=== PATIENT | male | born 2000 | race American Indian/Alaskan Native ===

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

== ENCOUNTER 2022-06-18 07:03 | Emergency (ER) | payer OTHER ==
[~2022-06-18] VITALS: Ht 162.6 cm; Wt 63.5 kg
[~2022-06-18 07:03] MED LIST changes: +CRUTCH1 EACH; +NORCO 5-325 TA1 EACH PO
== END 2022-06-18 07:38 | disposition home or self-care (01) ==
LOC: ED 07:03
DX: M25.561 Pain in right knee (principal); F90.9 Attention-deficit hyperactivity disorder, unspecified type; S80.01XA Contusion of right knee, initial encounter; S20.219A Contusion of unspecified front wall of thorax, initial encounter; V89.2XXA Person injured in unspecified motor-vehicle accident, traffic, initial encounter
CPT/HCPCS: 99283

== ENCOUNTER 2022-08-10 03:43 | Emergency (ER) | payer OTHER ==
[~2022-08-10] VITALS: Ht 185.4 cm; Wt 63.5 kg
[2022-08-10] MEDS ORDERED: PROTONIX40 MG PO (05:37)
== END 2022-08-10 05:49 | disposition home or self-care (01) ==
LOC: ED 03:43
DX: R10.12 Left upper quadrant pain (principal); R10.13 Epigastric pain
CPT/HCPCS: 36415; 80053; 81003; 83690; 85025; 99284

== ENCOUNTER 2024-06-30 03:29 | Observation (INO) | payer OTHER ==
[~2024-06-30] VITALS: Ht 185.4 cm; Wt 87.6 kg
[~2024-06-30 03:29] MED LIST changes: +PROTONIX40 MG PO
[2024-06-30] MEDS ORDERED: LACTATED RINGER'S 1,000 ML IV ONE (03:45)
[2024-06-30] MEDS ORDERED: HYDROmorphone HCL 1 MG/ML SYR IV PRN ×4 (03:45→10:45)
[2024-06-30] MEDS ORDERED: DIPHTH,PERTUSS(ACELL),TET VAC 0.5 ML SYRINGE IM ONE (03:45)
[2024-06-30] MEDS ORDERED: ondansetron HCL 4 MG/2 ML VIAL IV ONE (03:45)
[2024-06-30 04:26] LABS: BASOPHILS 0.2 % (0-2); HEMOGLOBIN 14.8 g/dL (12.0-18.0); LYMPHOCYTES 4.3 % (24-44); MCH 30.9 (27-36); MCHC 33.7 g/dl (30-36); MCV 91.8 fl (81-99); MONOCYTES 6.2 % (0-12); NEUTROPHILS 89.3 % (39-80); PLATELET COUNT 326 K/uL (140-440); RBC 4.79 M/ul (4.3-5.7); RDW 13.7 (10.5-15.0)
[2024-06-30 04:42] LABS: ALBUMIN/GLOBULIN RATIO 1.38 (1.1-2.4); ANION GAP 15.4 (7-21); BILIRUBIN, TOTAL 0.6 ng/dL (0.2-1.0); BUN/CREATININE RATIO 9.72 (6.0-28.6); CALCIUM 8.7 mg/dL (8.5-10.1); CREATININE, SERUM 0.72 mg/dL (0.70-1.30); POTASSIUM 3.4 mmol/L (3.5-5.1); PROTEIN, TOTAL 6.9 g/dL (6.4-8.2)
[2024-06-30 05:02] LABS: ABO A
[2024-06-30 05:03] LABS: ANTIBODY SCREEN NEGATIVE; RH POSITIVE
[2024-06-30] MEDS ORDERED: HYDROmorphone HCL 1 MG/ML SYR IV ONE (06:30)
[2024-06-30 06:34] LABS: BILIRUBIN, URINE NEGATIVE (negative); BLOOD/HGB, URINE LARGE (Negative); KETONE, URINE TRACE (Negative); LEUK ESTERASE, URINE NEGATIVE (negative); NITRITE, URINE NEGATIVE (negative)
[2024-06-30 06:43] LABS: CRYSTALS, URINE NONE SEEN (0-1+); RED BLOOD CELLS, URINE >50 /hpf (0-5)
[2024-06-30 06:44] LABS: BACTERIA, URINE RARE /hpf (negative); CASTS, URINE NONE SEEN \\lpf; COLLECTION TYPE, URINE CLEAN CATCH; REFLEX CULTURE, URINE No (No)
[2024-06-30] MEDS ORDERED: KETOROLAC TROMETHAMINE 30 MG/ML VIAL IV PRN (06:45)
[2024-06-30] MEDS ORDERED: ACETAMINOPHEN 325 MG TAB PO PRN ×2 (06:45→11:00)
[2024-06-30] MEDS ORDERED: ondansetron HCL 4 MG/2 ML VIAL IV PRN ×2 (06:45→10:45)
[2024-06-30 06:48] LABS: AMPHETAMINES, URINE NEGATIVE (NEGATIVE); BENZODIAZEPINE, URINE NEGATIVE (NEGATIVE); BUPRENORPHINE, URINE NEGATIVE (NEGATIVE); CANNABINOID, URINE POSITIVE (NEGATIVE); COCAINE, URINE NEGATIVE (NEGATIVE); ECSTASY, URINE NEGATIVE (NEGATIVE); FENTANYL, URINE POSITIVE (NEGATIVE); METHADONE, URINE NEGATIVE (NEGATIVE); OPIATES, URINE POSITIVE (NEGATIVE); OXYCODONE, URINE NEGATIVE (NEGATIVE); PHENCYCLIDINE, URINE NEGATIVE (NEGATIVE)
[2024-06-30 06:59] LABS: BARBITURATES, URINE NEGATIVE (NEGATIVE)
[2024-06-30 07:00] VITALS: BP 155/79
--- NOTE | 2024-06-30 07:35 | NUR ---
REPORT RECEIVED FROM NIGHT ED RN - PT RESTING IN BED AWAKE LOOKING AT PHONE. STATES HE IS NOT IN PAIN IF HE DOESNT MOVE. EDUCATION ON MOVEMENT AND PAIN MEDICATION PROVIDED. TELE #3 SHOWS NSR, HR 90. UNCLE AT BEDSIDE ASLEEP.
--- NOTE | 2024-06-30 08:09 | NUR ---
Board has been updated and patent appears to be in a good mood, no request from patient at this time. Call light has been placed within reach.
--- NOTE | 2024-06-30 08:30 | NUR ---
PRN PAIN MEDICATION ADMINISTERED FOR 7/10 PAIN, RIGHT SHOULDER AND LOWER BACK MOST SIGNIFICANTLY. PT ALERT AND ORIENTED, CPOX IN PLACE ON ROOM AIR SP02 95%. AIR MOVEMENT DIM IN LOWER RIGHT LUNG CARTER - WILL CONTINUE TO MONITOR. PT EDUCATED ON S/S OF WORSENING PLEURAL EFUSION. ICE PACK APPLIED TO CLAVICAL AREA, SIGNIGICANT SWELLING, CMS INTACT DISTALLY. CALL LIGHT IN REACH.
[2024-06-30 09:27] VITALS: BP 143/59
--- NOTE | 2024-06-30 10:32 | NUR ---
RN IN ROOM WITH SURGEON ROUNDING. PT ALERT AND ORIENTED, ANSWERS QUESTIONS APPROPRIATLY. DEMONSTRATES USE OF IS WITHOUT DIFFICULTY. SP02 REMAINS WNL ON ROOM AIR. SLING AND BACK BRACE DISCUSSED. MD REQUESTS PT EVAL FOR EDUCATION ON BODY MECHANICS WITH FX. UNCLE AT BEDSIDE.
[2024-06-30 10:37] VITALS: BP 143/59
[2024-06-30] MEDS ORDERED: PROCHLORPERAZINE EDISYLATE 10 MG/2 ML VIAL IV PRN (10:45)
--- NOTE | 2024-06-30 10:49 | NUR ---
MED REC COMPLETE
[2024-06-30] MEDS ORDERED: DOCUSATE SODIUM 100 MG CAP PO SCH (10:50)
[2024-06-30] MEDS ORDERED: POLYETHYLENE GLYCOL 3350 1 PACKET PO SCH (10:50)
[2024-06-30] MEDS ORDERED: OXYCODONE HCL 5 MG TAB PO PRN (11:00)
--- NOTE | 2024-06-30 11:59 | NUR ---
RN IN ROOM TO ASSIST PHYSICAL THERAPY WITH BRACE APPLICATION. PT DEMONSTRATES UNDERSTANDING OF PRECAUTIONS AND POTENTIAL CONSEQUENCES OF NON COMPLIANCE. UNCLE ALSO EDUCATED. PT AMBULATED WITH BRACES ON, STEADY ON FEET. NO RESPIRATORY DISTRESS NOTED.
--- NOTE | 2024-06-30 13:19 | NUR ---
PT RESTING IN BED WITH BOTH SLING AND BACK BRACE ON - PAIN 09/26 AT THIS TIME, DENIES CHANGE IN BREATHING EFFORTS. PO PRN PAIN MEDICATION ADMINISTERED. PT DENIES NEEDS, CALL LIGHT IN REACH.
[2024-06-30 13:40] VITALS: BP 151/69
[2024-06-30 14:04] VITALS: BP 151/69
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
[2024-06-30] MEDS ORDERED: OXYCODONE HCL10 MG PO (15:01)
[2024-06-30] MEDS ORDERED: TYLENOL EXTRA500 MG PO (15:01)
--- NOTE | 2024-06-30 16:00 | NUR ---
PT PROVIDED DC HOME INSTRUCTIONS. BRACE [employer] AGAIN COVERED WITH PT. INSTRUCTIONS FOR RX PROVIDED, INCLUDING NEXT DUE TIME. FOLLOW UP APPOINTMENTS REITERATED TO BE CALLED AND SCHEDULED BY PT TOMORROW. PT PROVIDED WITH SCRUBS TO GO HOME IN, ASSISTED IN DRESSING. IV DC'D, WNL. VS STABLE.
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
== END 2024-06-30 16:05 | disposition home or self-care (01) ==
LOC: ED 03:29 → MS 03:30
PROVIDERS: Family Medicine; ADMIT Colon & Rectal Surgery; ATTEND Colon & Rectal Surgery
DX: S27.321A Contusion of lung, unilateral, initial encounter (principal); S00.03XA Contusion of scalp, initial encounter; S42.101A Fracture of unspecified part of scapula, right shoulder, initial encounter for closed fracture; S42.021A Displaced fracture of shaft of right clavicle, initial encounter for closed fracture; S22.080A Wedge compression fracture of T11-T12 vertebra, initial encounter for closed fracture; S32.010A Wedge compression fracture of first lumbar vertebra, initial encounter for closed fracture; S27.0XXA Traumatic pneumothorax, initial encounter; V49.9XXA Car occupant (driver) (passenger) injured in unspecified traffic accident, initial encounter; F17.290 Nicotine dependence, other tobacco product, uncomplicated
CPT/HCPCS: 36415; 70450; 71045; 71260; 72125; 74177; 80053; 80307; 81001; 85025; 86850; 86900; 86901; 90471; 90715; 94762; 96374; 96375; 96376; 97162; 99285-25; 99406; A9270; G0378; G0480; J1171; J1885; J2405; J7121; Q9967